=== PATIENT | male | born 1955 | race Caucasian/White ===

== ENCOUNTER 2024-12-02 10:02 | Day surgery (SDC) | payer MEDICARE ==
[2024-11-30 11:42] VITALS: BMI 31.1
[2024-12-02 11:48] VITALS: TEMP 98
[2024-12-02] MEDS: LACTATED RINGERS 1,000 ML IV SCH (11:56)
[2024-12-02 11:59] LABS: Glucose,Whole Blood 116 mg/dL (70-110)
[2024-12-02] MEDS: IV FLUID CONTINUATION 1,000 ML IV ONE (12:01)
[2024-12-02] MEDS ORDERED: LIDOCAINE 1% INJ 10MG/ML (20 ML MDV) ONE (12:39)
[2024-12-02] MEDS ORDERED: PROPOFOL 10 MG/ML 20 ML VIAL IV ONE (12:39)
--- NOTE | 2024-12-02 13:03 | P.PCN ---
Date of Procedure: 12/02/24 Procedure(s) Performed: BRIEF HISTORY: Patient is a 69-year-old pleasant white male scheduled for an elective colonoscopy as a part of screening for colon cancer. PROCEDURE PERFORMED: Colonoscopy snare polypectomy. PREOPERATIVE DIAGNOSIS: Screening for colon cancer. IV sedation per Anesthesia. PROCEDURE: After informed consent was obtained, the patient, was brought into the endoscopy unit. IV sedation was administered by Anesthesia under continuous monitoring. Digital rectal examination was normal. Initially the Olympus CF-160 flexible video colonoscope was then inserted in the rectum, gradually advanced into the cecum without any difficulty. Careful examination was performed as the scope was gradually being withdrawn. Ileocecal valve and the appendiceal orifice were visualized and appeared normal. Prep was excellent. Mucosa of the cecum, 6 mm flat polyp that was removed by cold snare polypectomy. Rest of the ascending colon, transverse colon, descending colon, sigmoid colon, and rectum appeared normal. Retroflexion was performed in the rectum and no lesions were seen. The patient tolerated the procedure well. IMPRESSION: 6 mm flat cecal polyp status post cold snare polypectomy Rest of the colon appeared normal RECOMMENDATIONS: Findings of this examination were discussed with the patient as well as his family.. He was advised to follow-up with the biopsy results. If the biopsy reveals adenoma he can have repeat colonoscopy in 5 years.
[2024-12-02 13:37] VITALS: BP 122/75; PULSE 71; RESP 17
== END 2024-12-02 13:45 | disposition home or self-care (01) ==
LOC: ORWHC2ENDO 10:02
PROVIDERS: ATTEND Internal Medicine Gastroenterology
DX: Z12.11 Encounter for screening for malignant neoplasm of colon (principal); D12.0 Benign neoplasm of cecum
CPT/HCPCS: 88305; 45385; J2003; J2704